=== PATIENT | male | born 1960 | race Caucasian/White ===

== ENCOUNTER 2020-02-01 05:35 | Day surgery (SDC) ==
[2020-01-26 09:26] LABS: AGAP 9; BUN 18 mg/dL (8-22); CALCIUM 9.9 mg/dL (8.8-10.2); CHLORIDE 99 mmol/L (98-107); COSMO 276; CREATININE 0.9 mg/dL (0.7-1.2); ESTIMATED GFR > 60; GLUCOSE 103 mg/dL (70-104); POTASSIUM 4.6 mmol/L (3.5-5.1); SODIUM 137 mmol/L (136-145); TCO2 29 mmol/L (25-35)
[2020-01-26 09:52] LABS: INR 0.98; PROTIME 13.1 Seconds (11.0-16.0)
[2020-01-26 09:53] LABS: PTT 29.4 Seconds (22.3-41.8)
[2020-01-26 11:08] LABS: HEMATOCRIT 46.1 % (42.0-52.0); HEMOGLOBIN 15.2 g/dL (14.0-18.0); MCH 30.5 PG (27-31); MCV 92.4 FL (81-99); MPV 10.7 FL (7.4-10.4); RBC 4.99 XMIL (4.7-6.1); RDW 13.9 % (11.5-14.5); WBC 7.4 X1000 (4.8-10.8)
[2020-02-01] MEDS ORDERED: DIPRIVAN 1% ONE (06:04)
[2020-02-01] MEDS ORDERED: FENTANYL ONE ×2 (06:04→09:08)
[2020-02-01] MEDS ORDERED: SODIUM CHLORIDE 0.9% 10 ML ONE (06:04)
[2020-02-01] MEDS ORDERED: NORCURON ONE (06:04)
[2020-02-01] MEDS ORDERED: VERSED ONE (06:04)
[2020-02-01] MEDS ORDERED: QUELICIN (DOSE) ONE (06:04)
[2020-02-01] MEDS ORDERED: XYLOCAINE-MPF 2% ONE (06:04)
[2020-02-01] MEDS ORDERED: KEFZOL 2 GM/D5W 2 GM/50 ML IVPB ONE (06:12)
[2020-02-01] MEDS ORDERED: LR 1,000 ML ONE ×2 (06:12→06:31)
[2020-02-01] MEDS ORDERED: MARCAINE 0.25% PF/EPI 1:200,000 ONE (06:31)
[2020-02-01] MEDS ORDERED: B & O 16A SUPP ONE (06:31)
[2020-02-01] MEDS ORDERED: OFIRMEV 1000 MG/ISOTONIC SOLN 1,000 MG/100 ML BOTTLE ONE (07:20)
[2020-02-01] MEDS ORDERED: ZOFRAN ONE (07:31)
[2020-02-01] MEDS ORDERED: EPHEDRINE ONE (07:31)
[2020-02-01] MEDS ORDERED: DECADRON ONE (07:31)
[2020-02-01] MEDS ORDERED: NEOSTIGMINE ONE (07:54)
[2020-02-01] MEDS ORDERED: ROBINUL ONE (07:54)
[2020-02-01 08:39] LABS: URINE SOURCE CATH
[2020-02-01 08:45] LABS: BILIRUBIN URINE NEGATIVE (NEGATIVE); BLOOD URINE NEGATIVE (NEGATIVE); COLOR YELLOW; GLUCOSE URINE NEGATIVE (NEGATIVE); KETONE URINE NEGATIVE (NEGATIVE); LEUKOCYTES URINE NEGATIVE (NEGATIVE); NITRITE URINE NEGATIVE (NEGATIVE); PROTEIN URINE NEGATIVE (NEGATIVE); SP GRAVITY URINE 1.013; TURBIDITY URINE CLEAR (CLEAR); UROBILINOGEN URINE NORMAL (NORMAL)
[2020-02-01 08:47] LABS: UR EPITHELIAL CELLS <10 /HPF (<10); URINE BACTERIA NEGATIVE /HPF; URINE RBC <10 /HPF (<10); URINE WBC <10 /HPF (<10)
[2020-02-01] MEDS ORDERED: D5 1/2 NS 1,000 ML ONE (09:39)
[2020-02-01] MEDS: DILAUDID ONE ×5 (09:50→10:25)
[2020-02-01] MEDS ORDERED: NORCO-7.5 ONE (10:36)
[2020-02-01] MEDS ORDERED: MORPHINE IV PRN (11:27)
[2020-02-01] MEDS ORDERED: NORCO-7.5 PO PRN (11:30)
[2020-02-01] MEDS ORDERED: TYLENOL PO PRN (11:30)
[2020-02-01] MEDS ORDERED: ZOFRAN IV PRN (11:30)
[2020-02-01] MEDS ORDERED: DILAUDID IV PRN (11:30)
[2020-02-01] MEDS ORDERED: SODIUM CHLORIDE 0.9% INJ PRN (11:30)
[2020-02-01] MEDS ORDERED: NORCO-5 PO PRN (11:30)
[2020-02-01] MEDS ORDERED: PHENERGAN PO PRN (11:30)
[2020-02-01] MEDS: D5 1/2 NS 1,000 ML IV SCH ×2 (11:30→22:10)
[2020-02-01] MEDS ORDERED: DITROPAN PO PRN (11:30)
[2020-02-01] MEDS ORDERED: BENADRYL LIQUID PO PRN (11:30)
[2020-02-01] MEDS ORDERED: LABETALOL IV PRN (11:30)
[2020-02-01] MEDS ORDERED: PHENERGAN PR PRN (11:30)
[2020-02-01] MEDS ORDERED: PHENERGAN IV PRN (11:30)
[2020-02-01] MEDS ORDERED: PNEUMOVAX 23 IM ONE (11:47)
[2020-02-01] MEDS: TORADOL IV SCH ×4 (11:53→23:42)
[2020-02-01] MEDS ORDERED: OFIRMEV 1000 MG/ISOTONIC SOLN 1,000 MG/100 ML BOTTLE IV PRN (12:00)
[2020-02-01] MEDS: KEFZOL 2 GM/D5W 2 GM/50 ML IVPB IV SCH ×2 (14:09→22:16)
[2020-02-01] MEDS: NORCO-10 PO PRN (16:50)
[2020-02-01] MEDS: COLACE PO SCH (21:22)
[2020-02-01] MEDS: PERIDEX MT SCH (21:23)
[2020-02-02] MEDS: TORADOL IV SCH (06:22)
[2020-02-02] MEDS: KEFZOL 2 GM/D5W 2 GM/50 ML IVPB IV SCH (06:22)
[2020-02-02 07:49] VITALS: BP 121/63
[2020-02-02 07:49] LABS: HEMATOCRIT 36.7 % (42.0-52.0); MCH 31.2 PG (27-31); MCHC 32.7 g/dL (33-37); MCV 95.3 FL (81-99); MPV 9.9 FL (7.4-10.4); RBC 3.85 XMIL (4.7-6.1); RDW 14.2 % (11.5-14.5); WBC 15.07 X1000 (4.8-10.8)
[2020-02-02] MEDS: NORCO-10 PO PRN (07:56)
--- NOTE | 2020-02-02 08:12 | OPERATIVE NOTE ---
PROCEDURE DATE: 02/01/2020 SURGEON: Earle Branch MD PREOPERATIVE DIAGNOSIS: Elevated prostate-specific antigen, prostate cancer. POSTOPERATIVE DIAGNOSIS: Elevated prostate-specific antigen, prostate cancer. PROCEDURE: Robotic-assisted laparoscopic prostatectomy, laparoscopic urethral suspension. INDICATIONS: A 59-year-old male who had elevated PSA. He has had a biopsy, but his PSA continued to rise. He had another biopsy which revealed Henry 6 prostate adenocarcinoma. He was counseled on treatment options and wants to proceed with definitive surgery. He was counseled specifically on the risks of long-term urinary incontinence and erectile dysfunction. He voiced understanding. FINDINGS: Bilateral nerve sparing was performed. Watertight vesicourethral anastomosis at 240 mL. PROCEDURE IN DETAIL: After obtaining informed consent, patient was brought to the operating room. Perioperative antibiotics and general endotracheal anesthesia were administered. He was placed in lithotomy position, prepped and draped in sterile fashion. An 18-Uzbek Soares catheter was introduced and his bladder was drained. I made a small stab incision in his umbilicus, and introduced Veress needle connected to saline-filled syringe. I confirmed positive drop test, followed by aspiration of fluid in the syringe without evidence of GI contents or blood. We then insufflated his pneumoperitoneum to 15 mmHg. The trocar sites were demarcated in the standard prostatectomy fashion. Next, 10 mL of 0.25% Marcaine with epinephrine were used for local anesthetic at the skin site. Bovie electrocautery was used to incise skin. A 12 mm supraumbilical trocar was introduced followed by insertion of the robotic camera. His peritoneal cavity was inspected. The rest of the trocars were placed under direct vision. He was then placed in steep Trendelenburg position. The robot was docked. The peritoneum was incised 3 cm above his rectum, and right vas deferens was identified, dissected and transected, followed by identification and dissection of right seminal vesicle. The left vas deferens was identified, dissected and transected followed by dissection of the left seminal vesicle. I then dissected anterior to vas deferens to the level of prostate and then posterior to vas deferens by incising Denonvilliers' fascia, developing perirectal plane. I incised lateral to each medial umbilical ligament, allowing us to gain access to the space of Retzius. Once the bladder was dropped, I cleared off fat from the endopelvic fascia exposing it. Endopelvic fascia was incised following the contour of the prostate toward its apex. Puboprostatic ligaments were divided sharply. The superficial dorsal venous complex was controlled with bipolar electrocautery. Deep dorsal venous complex was controlled with 0 V-LOC suture in a [id number] fashion with periosteal elevation. Attention was turned to bladder neck which was identified by gentle tugging of the balloon of the Soares catheter. Monopolar cautery was used to incise the plane between the bladder and the prostate until Soares catheter came into the view. It was brought into the field. The prostate was placed in anterior traction. Bladder neck was transected circumferentially and the prostate was further elevated into the field. I then developed a plane between the bladder and the prostate until both vas deferens and seminal vesicles came into the view. Those were brought into the field. The prostate was further elevated anteriorly. His neurovascular bundles were reflected off the prostate at 5 and 7 o'clock with the use of Hem-O-Hamilton clips and avoiding cautery use. The prostate was then freed posteriorly and ultimately transected at its apex. I did use maximal urethral length preservation technique. Once the prostate was free, it was placed into EndoCatch bag and sealed. The 3-0 V-LOC suture was used to reapproximate perivesical and periurethral fascia with 2 sutures cross tied to each other. Those were saved for further laparoscopic urethral suspension. I then performed vesicourethral anastomosis with 3-0 V-LOC sutures, running them in a clockwise and counter-clockwise fashion and then cross tying the sutures. A fresh 18-Uzbek Soares catheter was introduced and we tested vesicourethral anastomosis by instilling 240 mL of sterile fluid. There was no evidence of leak. Attention was then turned to the laparoscopic urethral suspension by using previously placed Erik sutures. I threaded them through periosteum just lateral to the midline pubis, and that allowed us to elevate the urethra nicely. We then decreased pneumoperitoneal pressure and inspected the entire field without evidence of bleeding or injury to adjacent organs. The robot was then undocked. A supraumbilical incision was extended, and the prostate was delivered en bloc. Wounds were copiously irrigated. A #1 PDS suture was used to close the supraumbilical fascia in the running style. A 0 Vicryl suture was used to close the 12 mm veterinary technician assistant trocar in the fascia in a figure- of-eight fashion. The wounds were irrigated again. A 4-0 Monocryl was used for subcuticular closure. Covidien adhesive agent was applied over the skin. Soares catheter was placed to gravity drainage. Belladonna and opium suppository was administered. He was extubated and taken to PACU for further recovery. ESTIMATED BLOOD LOSS: 100 mL. COMPLICATIONS: None. SPECIMENS: Labeled as prostate gland. DRAINS: An 18-Uzbek Soares catheter. DISPOSITION: To PACU and subsequently the floor for observation. cc: Earle Branch MD
[2020-02-02 08:17] LABS: AGAP 10; BUN 16 mg/dL (8-22); CALCIUM 8.3 mg/dL (8.8-10.2); CHLORIDE 103 mmol/L (98-107); COSMO 281; ESTIMATED GFR > 60; GLUCOSE 138 mg/dL (70-104); POTASSIUM 4.1 mmol/L (3.5-5.1); SODIUM 139 mmol/L (136-145); TCO2 26 mmol/L (25-35)
[2020-02-02] MEDS: PERIDEX MT SCH (09:16)
[2020-02-02] MEDS: COLACE PO SCH (09:16)
== END 2020-02-02 11:37 | disposition home or self-care (01) ==
LOC: PAT 05:35 → OPS 05:35 → 4N 05:35 → OPS 02-02 11:37
PROVIDERS: ATTEND Urology